=== PATIENT | female | born 1990 | race African-American/Black ===

== ENCOUNTER 2017-01-05 06:31 | Emergency (ER) | payer SELFPAY ==
[2017-01-05 06:42] VITALS: BP 113/72
--- NOTE | 2017-01-05 07:13 | EDM.PDOC ---
ED HPI GENERAL MEDICAL PROBLEM - General Chief Complaint: Chest Pain Stated Complaint: PAIN AFTER BREAST REDUCTION Time Seen by Provider: 01/05/17 06:55 Source of Information: Reports: Patient History Limitations: Reports: No Limitations - History of Present Illness INITIAL COMMENTS - FREE TEXT/NARRATIVE: The patient presents with bilateral breast pain post breast reduction surgery 1 1/2 weeks ago. She has no drainage or redness to the breast. The right hurts worse then the left. She has no shortness of breath, fever, chills or cough. She is on percocet for the pain but she does not like how they make her fell. She feels flush and lightheaded. She was wondering if she could get something not as strong. Onset: Gradual Duration: Week(s): (05/18) Location: Reports: Other (Breast) Quality: Reports: Ache Severity: Moderate Improves with: Reports: None Worsens with: Reports: None Context: Reports: Other (Post breast reduction surgery) Associated Symptoms: Reports: No Other Symptoms Right Breast Pain Score (Numeric/FACES): 8 - Related Data Allergies Allergy/AdvReac Type Severity Reaction Status Date / Time No Known Allergies Allergy Verified 01/05/17 06:43 Home Meds: Home Meds Hydrocodone/Acetaminophen [Hydrocodon-Acetaminophen 5-325] 1 - 2 each PO Q6HR PRN #20 tablet 01/05/17 [Rx] oxyCODONE HCl/Acetaminophen [Oxycodon-Acetaminophen 7.5-300] 01/05/17 [History] Past Medical History - Past Health History Medical/Surgical History: Denies Medical/Surgical History - Past Surgical History Female Surgical History: Reports: Breast Reduction Social & Family History - Family History Family Medical History: Noncontributory - Tobacco Use Smoking Status *Q: Unknown Ever Smoked - Recreational Drug Use Recreational Drug Use: No ED ROS GENERAL - Review of Systems Review Of Systems: See Below Constitutional: Reports: No Symptoms HEENT: Reports: No Symptoms Respiratory: Reports: No Symptoms Cardiovascular: Reports: Other (Bilateral breast pain) Endocrine: Reports: No Symptoms GI/Abdominal: Reports: No Symptoms : Reports: No Symptoms Musculoskeletal: Reports: No Symptoms ED EXAM, GENERAL - Physical Exam Exam: See Below Exam Limited By: No Limitations General Appearance: Alert, No Apparent Distress Ears: Normal External Exam Nose: Normal Inspection Head: Atraumatic, Normocephalic Neck: Normal Inspection Respiratory/Chest: No Respiratory Distress, Lungs Clear, Normal Breath Sounds, Other (The incissions to the lateral breasts were closed and there was no erythema or edema or drainage.) Cardiovascular: Regular Rate, Rhythm, No Edema, No Murmur GI/Abdominal: Soft, Non-Tender, No Organomegaly, No Mass Extremities: Normal Inspection Neurological: Alert, Oriented, No Motor/Sensory Deficits Course - Vital Signs Last Recorded V/S: Last Vital Signs Temp 96.8 F 01/05/17 06:39 Pulse 62 01/05/17 06:39 Resp 18 01/05/17 06:39 BP 113/72 01/05/17 06:39 Pulse Ox 100 01/05/17 06:39 - Re-Assessments/Exams Free Text/Narrative Re-Assessment/Exam: 01/05/17 07:13 I had my nurse come in for the breast exam. I only needed to see the incision on the lateral breast and it looks good. No sign of infection. I will have her try some hydrocodone. Departure - Departure Time of Disposition: 19:15 Disposition: Home, Self-Care 01 Condition: Good Clinical Impression: Status post breast reduction Prescriptions: Hydrocodone/Acetaminophen [Hydrocodon-Acetaminophen 5-325] 1 - 2 each PO Q6HR PRN #20 tablet PRN Reason: Pain Referrals: Veronica Guillermo PA [Physician Access Specialist] - 1 Week Forms: ED Department Discharge Additional Instructions: Try the hydrocodone for pain. If you have any more concerns follow up with Veronica Burroughs.
== END 2017-01-05 07:22 | disposition home or self-care (01) ==
LOC: JD.ED 06:31
DX: Z48.817 Encounter for surgical aftercare following surgery on the skin and subcutaneous tissue (principal)
CPT/HCPCS: 99283

== ENCOUNTER 2017-01-28 00:06 | Emergency (ER) | payer SELFPAY ==
[2017-01-28 00:12] VITALS: BP 137/82
--- NOTE | 2017-01-28 00:52 | EDM.PDOC ---
ED HPI GENERAL MEDICAL PROBLEM - General Chief Complaint: ENT Problem Stated Complaint: fever sore throat Time Seen by Provider: 01/28/17 00:11 Source of Information: Reports: Patient, RN Notes Reviewed History Limitations: Reports: No Limitations - History of Present Illness INITIAL COMMENTS - FREE TEXT/NARRATIVE: The patient states that she developed a sore throat yesterday morning, 2016. This morning she found that her throat was seen full to breathe, and she developed chills, bilateral ear pain, myalgias, and a dry cough. She has started taking TheraFlu, clicks, NyQuil, and hot water with lemon and honey, ever, none have helped. Here in the ED, the patient's temperature is 90.9 degrees. The patient does not have a PCP. Throat Pain Score (Numeric/FACES): 4 - Related Data Allergies Allergy/AdvReac Type Severity Reaction Status Date / Time No Known Allergies Allergy Verified 01/28/17 00:12 Home Meds: Home Meds . 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) ED ROS GENERAL - Review of Systems Review Of Systems: See Below Constitutional: Reports: No Symptoms HEENT: Reports: No Symptoms Respiratory: Reports: No Symptoms Cardiovascular: Reports: No Symptoms Endocrine: Reports: No Symptoms GI/Abdominal: Reports: No Symptoms : Reports: No Symptoms Musculoskeletal: Reports: No Symptoms Skin: Reports: No Symptoms Neurological: Reports: No Symptoms Psychiatric: Reports: No Symptoms Hematologic/Lymphatic: Reports: No Symptoms Immunologic: Reports: No Symptoms ED EXAM, GENERAL - Physical Exam Exam: See Below Exam Limited By: No Limitations General Appearance: Alert, WD/WN, No Apparent Distress Eye Exam: Bilateral Eye: Normal Inspection Ears: Normal External Exam, Normal Canal, Hearing Grossly Normal, Normal TMs Nose: Normal Inspection, No Blood, Other (Mild bilateral nasal mucosal edema with clear rhinorrhea) Throat/Mouth: Normal Inspection, Normal Lips, Normal Teeth, Normal Gums, Normal Oropharynx (Bilateral tonsils are large, but not erythematous, and without exudates. No posterior oropharyngeal swelling or erythema to suggest peritonsillar cellulitis or abscess.), Normal Voice, No Airway Compromise Head: Atraumatic, Normocephalic Neck: Normal Inspection, Supple, Non-Tender, Full Range of Motion. No: Lymphadenopathy (L), Lymphadenopathy (R) Respiratory/Chest: No Respiratory Distress, Lungs Clear, Normal Breath Sounds, No Accessory Muscle Use Cardiovascular: Normal Peripheral Pulses, Regular Rate, Rhythm, No Gallop, No JVD, No Murmur, No Rub Peripheral Pulses: 4+: Radial (L), Radial (R) GI/Abdominal: Normal Bowel Sounds, Soft, Non-Tender, No Organomegaly, No Distention, No Abnormal Bruit, No Mass (Female) Exam: Deferred Rectal (Female) Exam: Deferred Back Exam: Normal Inspection, Full Range of Motion, NT Extremities: Normal Inspection, Normal Range of Motion, No Pedal Edema, Normal Capillary Refill Neurological: Alert, Oriented, Normal Cognition, No Motor/Sensory Deficits Psychiatric: Normal Affect Skin Exam: Warm, Dry, Intact, Normal Color, No Rash Lymphatic: No Adenopathy Course - Vital Signs Last Recorded V/S: Last Vital Signs Temp 37.2 C 01/28/17 00:10 Pulse 112 H 01/28/17 00:10 Resp 18 01/28/17 00:10 BP 137/82 01/28/17 00:10 Pulse Ox 100 01/28/17 00:10 - Orders/Labs/Meds Orders: Active Orders 24 hr Category Date Time Status CULTURE STREP A CONFIRMATION [] Stat Lab 01/28/17 00:33 Results STREP SCRN A RAPID W CULT CONF [] Stat Lab 01/28/17 00:33 Received - Re-Assessments/Exams Free Text/Narrative Re-Assessment/Exam: 01/28/17 01:00 Rapid strep test results discussed with the patient. The patient likely has a viral URI with cough. I recommended that she avoided taking any over-the- counter cough or cold remedies, as they have been shown to be ineffective. For nasal congestion and sinus pressure, I am recommending she use oxymetazoline nasal spray and nasal saline spray. Body aches she can take Tylenol or ibuprofen. Departure - Departure Time of Disposition: 01:00 Disposition: Home, Self-Care 01 Condition: Good Clinical Impression: Viral URI with cough - Discharge Information Referrals: PCP,None [Primary Care Provider] - Rachel Reyes [Physician] - Forms: ED Department Discharge Additional Instructions: You were seen in the emergency room for a sore throat, chills, ear pain, body aches, and cough. Workup in the ER included a rapid strep test, which returned as negative. You do not have strep throat. Your symptoms are MOST LIKELY due to a viral URI. Unfortunately, there are no medicines to treat a viral URI. It will have to run its course, which typically takes 10-12 days, with the worst of the symptoms in the first 5-7 days. We DO NOT recommend you take [id number] cough or cold medicines, such as TheraFlu, Vicks, or NyQuil, as they simply don't work. For nasal congestion and sinus pressure, you can try fzgy-qjx-wzkxcyo oxymetazoline in a pump mist. [place] one spray up each nostril, wait 5 minutes, then spray a second spray up each nostril. Repeat every 12 hours, but DO NOT exceed 5 days. We also recommend using nasal saline spray, provided it does not have a preservative. Purchase hwom-bgk-vtxjfef Simple Saline in a pressurized can, and use this many times per day. For body aches, you can take kfdi-zyb-bieyxpt Tylenol or ibuprofen. Ibuprofen will probably work better and last longer, but may cause stomach upset. If your symptoms fail to improve in about a week, please follow-up with Dr. Reyes in the clinic. If any other problems, please do not hesitate to return to the ER. - My Orders Last 24 Hours: My Active Orders 01/28/17 00:33 CULTURE STREP A CONFIRMATION [RM] Stat STREP SCRN A RAPID W CULT CONF [RM] Stat - Assessment/Plan Last 24 Hours: My Active Orders 01/28/17 00:33 CULTURE STREP A CONFIRMATION [RM] Stat STREP SCRN A RAPID W CULT CONF [RM] Stat
== END 2017-01-28 01:30 | disposition home or self-care (01) ==
LOC: JD.ED 00:06
DX: J06.9 Acute upper respiratory infection, unspecified (principal); F17.200 Nicotine dependence, unspecified, uncomplicated
CPT/HCPCS: 87081; 87430; 99283

== ENCOUNTER 2017-07-13 08:56 | Emergency (ER) | payer SELFPAY ==
[2017-07-13 09:18] VITALS: BP 121/90
--- NOTE | 2017-07-13 10:36 | EDM.PDOC ---
ED HPI GENERAL MEDICAL PROBLEM - General Chief Complaint: Respiratory Problem Stated Complaint: FEVER/CHILLS Time Seen by Provider: 07/13/17 09:17 Source of Information: Reports: Patient History Limitations: Reports: No Limitations - History of Present Illness INITIAL COMMENTS - FREE TEXT/NARRATIVE: The patient presents with fever, chills, cough and sore throat. This started yesterday. 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 She has no chest pain, shortness of breath, abdominal pain, nausea or vomiting. She has body aches. Onset: Gradual Duration: Day(s): (Yesterday) Location: Reports: Other (Throat) Quality: Reports: Sharp Severity: Moderate Improves with: Reports: None Worsens with: Reports: Other (Swallowing) Associated Symptoms: Reports: No Other Symptoms Generalized Pain Score (Numeric/FACES): 6 - Related Data Allergies Allergy/AdvReac Type Severity Reaction Status Date / Time No Known Allergies Allergy Verified 07/13/17 09:18 Home Meds: Home Meds Oseltamivir [Tamiflu] 75 mg PO BID #10 cap 07/13/17 [Rx] Past Medical History - Past Health History Medical/Surgical History: Denies Medical/Surgical History - Past Surgical History Female Surgical History: Reports: Breast Reduction Social & Family History - Family History Family Medical History: Noncontributory - Tobacco Use Smoking Status *Q: Never Smoker - Caffeine Use Caffeine Use: Reports: Coffee - Recreational Drug Use Recreational Drug Use: No - Living Situation & Occupation Living situation: Reports: , with Spouse 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 Denies: Shortness of Breath Cardiovascular: Reports: No Symptoms Endocrine: Reports: No Symptoms GI/Abdominal: Reports: No Symptoms : Reports: No Symptoms Musculoskeletal: Reports: Muscle Pain, Other ED EXAM, GENERAL - Physical Exam Exam: See Below Exam Limited By: No Limitations General Appearance: Alert, No Apparent Distress Ears: Normal External Exam, Normal Canal, Normal TMs Nose: Normal Inspection Throat/Mouth: Other (Tonsilar edema and erythema) Head: Atraumatic, Normocephalic Neck: Normal Inspection Respiratory/Chest: No Respiratory Distress, Lungs Clear, Normal Breath Sounds Cardiovascular: Regular Rate, Rhythm, No Edema, No Murmur GI/Abdominal: Soft, Non-Tender, No Organomegaly, No Mass Back Exam: Normal Inspection Extremities: Normal Inspection Course - Vital Signs Last Recorded V/S: Last Vital Signs Temp 97.6 F 07/13/17 09:15 Pulse 112 H 07/13/17 09:15 Resp 18 07/13/17 09:15 BP 121/90 07/13/17 09:15 Pulse Ox 97 07/13/17 09:15 - Orders/Labs/Meds Orders: Active Orders 24 hr Category Date Time Status CULTURE STREP A CONFIRMATION [RM] Stat Lab 07/13/17 09:45 Results Rapid Strep w/culture conf [STREP SCRN A RAPID W CULT Lab 07/13/17 09:45 Results CONF] [] Stat - Re-Assessments/Exams Free Text/Narrative Re-Assessment/Exam: 07/13/17 10:34 Her strep is negative. She is positive for influenza B. I will discharge her with some tamiflu. Departure - Departure Time of Disposition: 10:35 Disposition: Home, Self-Care 01 Condition: Good Clinical Impression: Influenza B - Discharge Information Prescriptions: Oseltamivir [Tamiflu] 75 mg PO BID #10 cap Referrals: PCP,None [Primary Care Provider] - Delphine Caicedo MD [Physician] - 1 Week Forms: ED Department Discharge, ED Return to Work/School Form Additional Instructions: Take the tamiflu 2 times per day for 5 days. Drink plenty of fluids. Take tylenol or motrin for pain or fever. Please return if you are worse.
== END 2017-07-13 10:43 | disposition home or self-care (01) ==
LOC: JD.ED 08:56
DX: J10.1 Influenza due to other identified influenza virus with other respiratory manifestations (principal)
CPT/HCPCS: 87081; 87430; 87804; 99283

== ENCOUNTER 2018-08-15 21:04 | Emergency (ER) | payer MEDICAID ==
[2018-08-15 21:15] VITALS: BP 133/80
[2018-08-15] MEDS ORDERED: Ketorolac 30 MG/ML SDV IVPUSH ONE (21:25)
[2018-08-15] MEDS ORDERED: diphenhydrAMINE 50 MG/ML SDV IVPUSH ONE (21:25)
[2018-08-15] MEDS ORDERED: Prochlorperazine 10 MG/2 ML SDV IVPUSH ONE (21:25)
[2018-08-15] MEDS ORDERED: Sodium Chloride 0.9% 10 ML Syringe FLUSH PRN (21:25)
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
--- NOTE | 2018-08-16 07:17 | CT ---
Head CT Technique: Multiple axial sections were obtained from above the dome of the diaphragm inferiorly through the pubic symphysis. Intravenous contrast not utilized. Findings: Ventricles along with basal cisterns and sulci over the convexities are within normal limits for the patient's age. No abnormal parenchymal densities are seen. No evidence of intracranial hemorrhage. No midline shift or mass effect is seen. Bone window settings were reviewed which show no acute calvarial abnormality. Visualized sinuses are clear. Impression: 1. Nothing acute is appreciated on noncontrast head CT exam. Diagnostic code #1 I agree with preliminary report from [facility], finalized on 08/15/18, 11:25 PM Central Time
== END 2018-08-15 23:17 | disposition home or self-care (01) ==
LOC: JD.ED 21:04
DX: S06.9X9A Unspecified intracranial injury with loss of consciousness of unspecified duration, initial encounter (principal); H53.8 Other visual disturbances; W22.8XXA Striking against or struck by other objects, initial encounter
CPT/HCPCS: 70450; 87081; 87430; 87804; 96374; 96375; 99284; J0780; J1200; J1885

== ENCOUNTER 2018-08-24 17:54 | Emergency (ER) | payer MEDICAID ==
--- NOTE | 2018-08-24 18:29 | EDM.PDOC ---
ED HPI GENERAL MEDICAL PROBLEM - General Chief Complaint: JUICE WEIGHER Problem Stated Complaint: VAGINAL COMPLAINT Time Seen by Provider: 08/24/18 18:28 Source of Information: Reports: Patient - History of Present Illness INITIAL COMMENTS - FREE TEXT/NARRATIVE: Patient presents to the emergency room for dysuria. She states that she has had some labial irritation for the past 2 weeks. She is now having burning with urination that has worsened over the last 2 days. Burning is primarily located on the left side of her labia that she feels it is on her urethra as well. Incidentally, she did have unprotected intercourse about 3 weeks ago as well. She just got done with her LMP. Denies history of STI or vaginal lesions. Denies abdominal pain. Denies hematuria or abnormal color smell to urine. Denies GI symptoms. Denies fever or chills. . Perineal Area Pain Score (Numeric/FACES): 8 - Related Data Allergies Allergy/AdvReac Type Severity Reaction Status Date / Time No Known Allergies Allergy Verified 08/24/18 18:11 Home Meds: Home Meds . [No Known Home Meds] 08/15/18 [History] Past Medical History - Past Health History Medical/Surgical History: Denies Medical/Surgical History HEENT History: Reports: Impaired Vision JUICE WEIGHER History: Reports: - Infectious Disease History Infectious Disease History: Reports: Influenza - Past Surgical History Female Surgical History: Reports: Breast Reduction Social & Family History - Family History Family Medical History: Noncontributory - Tobacco Use Smoking Status *Q: Never Smoker Second Hand Smoke Exposure: No - Caffeine Use Caffeine Use: Reports: None - Recreational Drug Use Recreational Drug Use: No - Living Situation & Occupation Living situation: Reports: , with Spouse 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 Denies: Discharge, Flank Pain, Frequency, Hematuria , Urgency, Urinary Retention Skin: Reports: No Symptoms Neurological: Reports: No Symptoms ED EXAM, RENAL/ - Physical Exam Exam: See Below General Appearance: Alert, WD/WN, No Apparent Distress GI/Abdominal: Soft, Non-Tender (Female) Exam: Normal Speculum Exam, Other (0.5 cm area of irritation to the inside of the left labia. No pustule or vesicle noted. No ulceration noted.). No: Cervical Discharge, Cervix Motion Tenderness, Vaginal Bleeding, Vaginal Discharge Neurological: Alert, Oriented Psychiatric: Normal Affect, Normal Mood Skin Exam: Warm, Dry. No: Rash Course - Vital Signs Last Recorded V/S: Last Vital Signs Temp 98.1 F 08/24/18 18:02 Pulse 64 08/24/18 18:02 Resp 12 08/24/18 18:02 BP 94/81 08/24/18 18:02 Pulse Ox 100 08/24/18 18:02 - Orders/Labs/Meds Orders: Active Orders 24 hr Category Date Time Status GC/CHLAMYDIA BY PCR [MOLEC] Stat Lab 08/24/18 18:40 Received HERPES/VARICELLA [MREF] Routine Lab 08/24/18 18:40 Received Labs: Laboratory Tests 08/24/18 Range/Units 18:40 Urine Color Yellow (Yellow) Urine Appearance Clear (Clear) Urine pH 6.0 (5.0-8.0) Ur Specific Berry > or = 1.030 (1.005-1.030) Urine Protein Trace H (Negative) Urine Glucose (UA) Negative (Negative) Urine Ketones Negative (Negative) Urine Occult Blood Trace-intact H (Negative) Urine Nitrite Negative (Negative) Urine Bilirubin Negative (Negative) Urine Urobilinogen 1.0 (0.2-1.0) Ur Leukocyte Esterase Negative (Negative) Urine RBC 0-5 (0-5) /hpf Urine WBC 0-5 (0-5) /hpf Ur Epithelial Cells Not Reportable Ur Squamous Epith Cells 0-5 (0-5) /hpf Urine Bacteria Few (FEW) /hpf Urine Mucus Moderate H (FEW) /hpf - Re-Assessments/Exams Free Text/Narrative Re-Assessment/Exam: Urinalysis is concentrated with trace of protein and hematuria. She did just finish her menses yesterday. No infection. Wet mount negative. GC/chlamydia and herpes are pending but there is no vesicle or pustule noted on exam. I will notify her when these results become available. Suspect area is just more irritation, possibly due to friction. Recommend she apply topical calmoseptine and avoid irritating the area further. Patient will follow up in the clinic.Return to the emergency room for any new or worsening symptoms. 08/24/18 19:50 Departure - Departure Time of Disposition: 19:46 Disposition: Home, Self-Care 01 Condition: Good Clinical Impression: Dysuria, Vaginal irritation, Labia irritation - Discharge Information Referrals: PCP,None [Primary Care Provider] - Forms: ED Department Discharge Additional Instructions: You were evaluated in the emergency department for painful urination. Urinalysis demonstrated you did not have a bladder infection. You do have an irritation on the inside of her la Keep this area clean and dry. You may apply topical Calmoseptine cream (this can be purchased at any pharmacy ) to the irritated area. I will notify you of herpes and GC/chlamydia screening in a week or so when results are available. Return to the emergency department for any new or worsening symptoms otherwise follow-up in family practice clinic. You need to establish with a primary care provider. You can do this in the clinic by calling [phone]. - My Orders Last 24 Hours: My Active Orders 08/24/18 18:40 GC/CHLAMYDIA BY PCR [MOLEC] Stat HERPES/VARICELLA [MREF] Routine - Assessment/Plan Last 24 Hours: My Active Orders 08/24/18 18:40 GC/CHLAMYDIA BY PCR [MOLEC] Stat HERPES/VARICELLA [MREF] Routine
[2018-08-24 19:17] VITALS: BP 94/81
[2018-08-24 21:15] LABS: C. TRACHOMATIS BY PCR NOT DETECTED; N. GONORRHOEAE BY PCR NOT DETECTED
== END 2018-08-24 20:01 | disposition home or self-care (01) ==
LOC: JD.ED 17:54
DX: N89.8 Other specified noninflammatory disorders of vagina (principal); R30.0 Dysuria; R31.9 Hematuria, unspecified
CPT/HCPCS: 81001; 87210; 87491; 87591; 87801; 87808; 99282; 99283

== ENCOUNTER 2018-10-15 23:01 | Emergency (ER) | payer MEDICAID ==
[2018-10-15 23:27] VITALS: BP 126/78
[2018-10-16] MEDS ORDERED: Bacitracin Oint 15 GM Tube TOP STA (00:42)
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
== END 2018-10-16 00:55 | disposition home or self-care (01) ==
LOC: JD.ED 23:01
DX: S61.305A Unspecified open wound of left ring finger with damage to nail, initial encounter (principal); S61.307A Unspecified open wound of left little finger with damage to nail, initial encounter; S61.304A Unspecified open wound of right ring finger with damage to nail, initial encounter; H11.31 Conjunctival hemorrhage, right eye; F17.200 Nicotine dependence, unspecified, uncomplicated; Y04.0XXA Assault by unarmed brawl or fight, initial encounter
CPT/HCPCS: 99283; A9270

== ENCOUNTER 2019-01-09 09:33 | Emergency (ER) | payer MEDICAID ==
[2019-01-09 09:49] VITALS: BP 115/72
[2019-01-09] MEDS ORDERED: Albuterol 6.7 GM Inhaler INH ONE (10:22)
--- NOTE | 2019-01-09 10:26 | CR ---
Chest: Two views of the chest were obtained. Comparison: No prior chest imaging is available. Heart size and mediastinum are normal. Lungs are clear with no acute parenchymal change. Scoliosis is noted within the spine. Impression: 1. Scoliosis. Nothing acute is seen on two-view chest x-ray. Diagnostic code #2
--- NOTE | 2019-01-09 10:32 | EDM.PDOC ---
ED HPI GENERAL MEDICAL PROBLEM - General Chief Complaint: Respiratory Problem Stated Complaint: COUGH X 2 WEEKS Time Seen by Provider: 01/09/19 09:50 - History of Present Illness INITIAL COMMENTS - FREE TEXT/NARRATIVE: 28-year-old female presents emergency room with a cough. This cough has been present for the last 2 weeks it is mostly dry occasionally productive. She's not had any fevers or chills associated with this. She has no underlying lung disease however does have a history of enlarged tonsils. 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: - Infectious Disease History Infectious Disease History: Reports: Influenza - Past Surgical History Female Surgical History: Reports: Breast Reduction Social & Family History - Family History Family Medical History: Noncontributory - Caffeine Use Caffeine Use: Reports: None - Living Situation & Occupation Living situation: Reports: , Alone 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) ED ROS GENERAL - Review of Systems Review Of Systems: See Below Constitutional: Reports: No Symptoms HEENT: Reports: No Symptoms Respiratory: Reports: Cough, Sputum (Occasional) Cardiovascular: Reports: No Symptoms GI/Abdominal: Reports: No Symptoms ED EXAM, GENERAL - Physical Exam Exam: See Below Exam Limited By: No Limitations General Appearance: Alert, No Apparent Distress Eye Exam: Bilateral Eye: Normal Inspection Ears: Normal External Exam, Normal Canal, Hearing Grossly Normal, Normal TMs Nose: Normal Inspection, Normal Mucosa, No Blood Throat/Mouth: Normal Inspection, Normal Lips, Normal Teeth, Normal Gums, No Airway Compromise, Other (Normal color oropharynx tonsils are markedly enlarged this appears to be chronic condition for her). No: Normal Oropharynx Head: Atraumatic, Normocephalic Neck: Normal Inspection, Supple, Non-Tender, Full Range of Motion. No: Lymphadenopathy (L), Lymphadenopathy (R) Respiratory/Chest: No Respiratory Distress, Lungs Clear, Normal Breath Sounds Cardiovascular: Regular Rate, Rhythm, No Edema, No Murmur Course - Vital Signs Last Recorded V/S: Last Vital Signs Temp 36.6 C 01/09/19 09:40 Pulse 84 01/09/19 09:40 Resp 16 01/09/19 09:40 BP 115/72 01/09/19 09:40 Pulse Ox 99 01/09/19 09:40 - Orders/Labs/Meds Orders: Active Orders 24 hr Category Date Time Status RT Post Treatment Assessment [RC] Click to Edit Care 01/09/19 10:22 Active RT Pre-Treatment Assessment [RC] Click to Edit Care 01/09/19 10:22 Active Meds: Medications Discontinued Medications Generic Name Dose Route Start Last Admin Trade Name Freq PRN Reason Stop Dose Admin Albuterol 0 gm 01/09/19 10:22 Proventil Hfa INH 01/09/19 10:23 ONETIME ONE - Re-Assessments/Exams Free Text/Narrative Re-Assessment/Exam: 01/09/19 10:29 Patient is a continued cough for the last 2 weeks mostly dry nonproductive but occasionally bringing up small amount of mucus. Chest x-ray was done which reveals some scoliosis but no acute cardiopulmonary changes. Departure - Departure Time of Disposition: 10:29 Disposition: Home, Self-Care 01 Clinical Impression: Bronchitis - Discharge Information Prescriptions: Hydrocodone/Acetaminophen [[place] 5-325 Tablet] 1 each PO Q24H PRN #5 tablet PRN Reason: Cough Referrals: PCP,None [Primary Care Provider] - Forms: ED Department Discharge Additional Instructions: Return to the emergency room with any questions problems worsening symptoms. Use the inhaler your given in the emergency room 2 puffs every 4 hours while awake. Follow-up at the end of this week Hospital clinic to establish care and follow- up on her bronchitis. [phone]. Use the [place], or the hydrocodone one nightly as needed to help with your cough - My Orders Last 24 Hours: My Active Orders 01/09/19 10:22 RT Post Treatment Assessment [RC] Click to Edit RT Pre-Treatment Assessment [RC] Click to Edit - Assessment/Plan Last 24 Hours: My Active Orders 01/09/19 10:22 RT Post Treatment Assessment [RC] Click to Edit RT Pre-Treatment Assessment [RC] Click to Edit
== END 2019-01-09 10:55 | disposition home or self-care (01) ==
LOC: JD.ED 09:33
DX: J40 Bronchitis, not specified as acute or chronic (principal); Z88.1 Allergy status to other antibiotic agents
CPT/HCPCS: 71046; 94640; 99283; A9270

== ENCOUNTER 2019-07-10 16:25 | Emergency (ER) | payer MEDICAID ==
[2019-07-10 17:29] VITALS: BP 117/94; PULSE 84
[2019-07-10] MEDS ORDERED: Bupivacaine 0.5% 10 ML SDV INJECT ONE (18:57)
[2019-07-10] MEDS ORDERED: Lidocaine 1% 10 ML MDV INJECT ONE (18:57)
--- NOTE | 2019-07-10 18:57 | EDM.PDOC ---
ED HPI GENERAL MEDICAL PROBLEM - General Chief Complaint: Skin Complaint Stated Complaint: BOIL IN PRIVATE AREA Time Seen by Provider: 07/10/19 18:49 - History of Present Illness INITIAL COMMENTS - FREE TEXT/NARRATIVE: 28-year-old female presents the emergency room with abscess developing in her left groin. This is been developing over the last several days. The patient tried to drain it using nail clippers last night this did not work so it. She is not had any fevers or chills. She thinks this started after shaving the area. The patient has not had problems like this in the past. Patient has no other complaints at this time she has no complaints consistent with systemic illness. 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 NURSE 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: Reports: Musculoskeletal History: Reports: None Neurological History: Reports: None Psychiatric History: Reports: None Endocrine/Metabolic History: Reports: None Hematologic History: Reports: None Immunologic History: Reports: None Oncologic (Cancer) History: Reports: None Dermatologic History: Reports: None - Infectious Disease History Infectious Disease History: Reports: None - Past Surgical History Female Surgical History: Reports: Breast Reduction Social & Family History - Family History Family Medical History: Noncontributory - Tobacco Use Smoking Status *Q: Never Smoker - Caffeine Use Caffeine Use: Reports: Soda - Recreational Drug Use Recreational Drug Use: No - Living Situation & Occupation Living situation: Reports: , Alone 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) ED ROS GENERAL - Review of Systems Review Of Systems: See Below Constitutional: Reports: No Symptoms Respiratory: Reports: No Symptoms Cardiovascular: Reports: No Symptoms GI/Abdominal: Reports: No Symptoms : Reports: No Symptoms ED EXAM, SKIN/RASH Exam: See Below Exam Limited By: No Limitations General Appearance: Alert, No Apparent Distress Respiratory/Chest: No Respiratory Distress, Lungs Clear, Normal Breath Sounds Cardiovascular: Regular Rate, Rhythm, No Edema, No Murmur GI/Abdominal: Normal Bowel Sounds, Soft, Non-Tender (Female) Exam: Normal External Exam, Other (In her lateral inferior left groin she has no abscesses roughly 4 cm x 1-1/2 cm fairly superficial under the skin this is medial and inferior to the femoral triangle) ED SKIN PROCEDURES - I&D Site: Left inferior medial groin Skin Prep: Providone-Iodine (Betadine) Local Anesthesia: Lidocaine: 1% Plain Local Anesthesia - Bupivicaine (Marcaine): 0.5% Plain Local Anesthetic Volume: 5cc, Other (5 cc of each) Area Incised With: 15 Blade, Scissors Drainage: Purulent, Bloody, Large Amount Probed to Break Up Loculations: Yes Packed With: 1/2 in. Iodoform Sterile Dressing: Other (Bulky dressing using an ABD) Complications: No Progress/Comments: Patient tolerated the procedure well. Course - Vital Signs Last Recorded V/S: Last Vital Signs Temp 36.1 C 07/10/19 17:21 Pulse 84 07/10/19 17:21 Resp 16 07/10/19 17:21 BP 117/94 H 07/10/19 17:21 Pulse Ox 100 07/10/19 17:21 - Orders/Labs/Meds Meds: Medications Discontinued Medications Generic Name Dose Route Start Last Admin Trade Name Krystle PRN Reason Stop Dose Admin Bupivacaine HCl 10 ml 07/10/19 18:57 07/10/19 19:04 Sensorcaine-Mpf 0.5% INJECT 07/10/19 18:58 10 ml ONETIME ONE Administration Lidocaine HCl 10 ml 07/10/19 18:57 07/10/19 19:04 Xylocaine 1% INJECT 07/10/19 18:58 10 ml ONETIME ONE Administration - Re-Assessments/Exams Free Text/Narrative Re-Assessment/Exam: 07/10/19 19:57 Presents with an abscess in her left groin after informed consent without difficulty draining this refer to the procedure note Departure - Departure Time of Disposition: 19:57 Disposition: Home, Self-Care 01 Clinical Impression: Abscess of left groin - Discharge Information Prescriptions: Acetaminophen/HYDROcodone [[place] 325-5 MG] 1 - 2 tab PO Q6H PRN #25 tablet PRN Reason: Pain Clindamycin HCl 300 mg PO Q8H #21 capsule Referrals: PCP,None [Primary Care Provider] - Forms: ED Department Discharge Additional Instructions: Return to the emergency room with any questions problems or worsening symptoms. Follow-up in the hospital clinic on Wednesday for recheck call in the morning for an appointment [phone]. Take the antibiotics as directed. Use the pain pills as needed. For the next week do sitz baths using some Epsom salts 4 times daily. After 1 week decrease it to twice daily until it is completely healed. Prior to doing this probed the area with Q-tips and hydrogen peroxide as we discussed. It is very important to keep the incision open and let this heal from the inside out. Sepsis Event Note - Evaluation Sepsis Screening Result: No Definite Risk - Focused Exam Vital Signs: Vital Signs Temp Pulse Resp BP Pulse Ox 07/10/19 17:21 36.1 C 84 16 117/94 H 100 Date Exam was Performed: 07/10/19 Time Exam was Performed: 19:48
[2019-07-10] MEDS ORDERED: Clindamycin HCl 150 MG Cap PO ONE (19:55)
== END 2019-07-10 20:14 | disposition home or self-care (01) ==
LOC: JD.ED 16:25
DX: L02.214 Cutaneous abscess of groin (principal); Z88.1 Allergy status to other antibiotic agents
CPT/HCPCS: 10061; 87070; 99283; A9270; J2001; J3490; 10060

== ENCOUNTER 2019-11-16 21:14 | Emergency (ER) | payer MEDICAID, OTHER ==
[2019-11-16 21:29] VITALS: BP 126/81; PULSE 95
--- NOTE | 2019-11-16 22:18 | EDM.PDOC ---
ED HPI GENERAL MEDICAL PROBLEM - General Chief Complaint: Fever Stated Complaint: FEVER,COUGH AND TIGHTNESS IN CHEST Time Seen by Provider: 11/16/19 21:44 Source of Information: Reports: Patient History Limitations: Reports: No Limitations - History of Present Illness INITIAL COMMENTS - FREE TEXT/NARRATIVE: Ms. Fletcher is a very pleasant 29-year-old woman with no chronic medical problems, who states that she experienced some watery diarrhea on 11/12/2019, and none since. She then choked on a chip 3 days ago, 11/13/2019. She states that it caused her to cough the whole day. She then woke up 2 days ago, 11/14/2019, with a sore throat. She also developed a nonproductive cough which has persisted. She went to the walk-in clinic, where a rapid strep test was negative. She states that no prescriptions were given. She states that she then felt feverish yesterday, with diaphoresis and feeling faint. She states that she called 911 last night, that the paramedics evaluated her, and advised her to put a cool compress on her forehead and take Tylenol. The patient now presents the ED stating that she is concerned that she may have acquired COVID-19, and wants to be tested, because she is planning to go to [place] in 2 days, and wants to know before she goes. The patient acknowledges that she is not taking appropriate precautions to avoid infection with COVID-19. Here in the ED, the patient is found to be hemodynamically stable, afebrile, saturating 98% on room air. Other than the above symptoms, the patient denies recent fever, chills, ear pain, nasal or sinus congestion, dyspnea, chest pain, palpitations, nausea, vomiting, constipation, abdominal pain, urinary symptoms, recent weight gain or weight loss, recent bloody bowel movements or black bowel movements, recent joint aches, headaches, or rashes. The patient does not have a PCP. - Related Data Allergies Allergy/AdvReac Type Severity Reaction Status Date / Time amoxicillin Allergy Rash Verified 07/10/19 17:28 Home Meds: Home Meds Acetaminophen/HYDROcodone [[place] 325-5 MG] 1 - 2 tab PO Q6H PRN #25 tablet 07/10/19 [Rx] Clindamycin HCl 300 mg PO Q8H #21 capsule 07/10/19 [Rx] Past Medical History HEENT History: Reports: Impaired Vision - Past Surgical History Female Surgical History: Reports: Breast Reduction (bilateral) Social & Family History - Family History Family Medical History: Noncontributory - Tobacco Use Smoking Status *Q: Never Smoker Second Hand Smoke Exposure: No - Caffeine Use Caffeine Use: Reports: None - Alcohol Use Alcohol Use History: Yes Alcohol Use Frequency: Socially - Recreational Drug Use Recreational Drug Use: Yes Drug Use in Last 12 Months: Yes Recreational Drug Type: Reports: Marijuana/Hashish (smokes on occasion) - Living Situation & Occupation Living situation: Reports: , Alone 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 ED EXAM, GENERAL - Physical Exam Exam: See Below Exam Limited By: No Limitations General Appearance: Alert, WD/WN, No Apparent Distress Eye Exam: Bilateral Eye: EOMI, Normal Inspection Ears: Normal External Exam, Normal Canal, Hearing Grossly Normal, Normal TMs Nose: Normal Inspection, Normal Mucosa, No Blood Throat/Mouth: Normal Inspection, Normal Lips, Normal Teeth, Normal Gums, Normal Oropharynx (anatomically large tonsils, but no swelling, erythema, or exudates), Normal Voice, No Airway Compromise Head: Atraumatic, Normocephalic Neck: Normal Inspection, Supple, Non-Tender, Full Range of Motion. No: Lymphadenopathy (L), Lymphadenopathy (R) Respiratory/Chest: No Respiratory Distress, Lungs Clear, Normal Breath Sounds, No Accessory Muscle Use. No: Decreased Breath Sounds, Crackles, Rhonchi, Wheezing, Stridor, Prolonged Expiration Cardiovascular: Normal Peripheral Pulses, Regular Rate, Rhythm, No Edema, No Gallop, No JVD, No Murmur, No Rub Peripheral Pulses: 3+: Radial (L), Radial (R) GI/Abdominal: Normal Bowel Sounds, Soft, Non-Tender, No Organomegaly, No Distention, No Abnormal Bruit, No Mass (Female) Exam: Deferred Rectal (Female) Exam: Deferred Back Exam: Normal Inspection, Full Range of Motion, NT Extremities: Normal Inspection, Normal Range of Motion, No Pedal Edema, Normal Capillary Refill Neurological: Alert, Oriented, Normal Cognition, No Motor/Sensory Deficits Psychiatric: Normal Affect Skin Exam: Warm, Dry, Intact, Normal Color, No Rash Course - Vital Signs Last Recorded V/S: Last Vital Signs Temp 36.2 C 11/16/19 21:24 Pulse 95 11/16/19 21:24 Resp 16 11/16/19 21:24 BP 126/81 11/16/19 21:24 Pulse Ox 98 11/16/19 21:24 - Orders/Labs/Meds Orders: Active Orders 24 hr Category Date Time Status CORONAVIRUS COVID-19 PCR [facility] Stat Lab 11/16/19 22:25 Received - Re-Assessments/Exams Free Text/Narrative Re-Assessment/Exam: 11/16/19 22:11 As above, the patient has had a dry cough and felt feverish with sweatiness and feeling faint since Wednesday. On physical exam, no abnormalities were found. Her lungs are entirely clear to auscultation bilaterally without wheezing, and her oxygen saturation is 98% on room air. She declined an offer for testing such as blood work or a chest x-ray - she is here to be tested for COVID-19 only. I explained that we are not able to perform either the stat or rapid COVID-19 test, as they are reserved for emergency surgeries and inpatients, and that ordinarily the send-out test performed by the [facility] is to be obtained by the COVID clinic, however, I spoke with our charge nurse, and she does not object if we obtain the send-out test here tonight. The patient will therefore be swabbed, then discharged home. Departure - Departure Time of Disposition: 22:13 Disposition: Home, Self-Care 01 Condition: Good Clinical Impression: Cough - Discharge Information *PRESCRIPTION DRUG MONITORING PROGRAM REVIEWED*: Not Applicable *COPY OF PRESCRIPTION DRUG MONITORING REPORT IN PATIENT PK: Not Applicable Instructions: Cough, Adult, [id number] Referrals: PCP,None [Primary Care Provider] - Forms: ED Department Discharge Additional Instructions: You were seen in the emergency room for 2 days of a dry cough and feeling feverish with sweatiness and feeling faint. A work-up, including blood work and a chest x-ray was offered, but declined. You have been swabbed to test for COVID-19. The test is performed by the [facility]. You should get your results in about 2 days. If any other problems, please do not hesitate to return to the ER. Sepsis Event Note (ED) - Evaluation Sepsis Screening Result: No Definite Risk - Focused Exam Vital Signs: Vital Signs Temp Pulse Resp BP Pulse Ox 11/16/19 21:24 36.2 C 95 16 126/81 98 - My Orders Last 24 Hours: My Active Orders 11/16/19 22:25 CORONAVIRUS COVID-19 PCR [facility] Stat - Assessment/Plan Last 24 Hours: My Active Orders 11/16/19 22:25 CORONAVIRUS COVID-19 PCR [facility] Stat
== END 2019-11-16 22:33 | disposition home or self-care (01) ==
LOC: JD.ED 21:14
DX: R05 Cough (principal); Z88.1 Allergy status to other antibiotic agents; Z20.828 Contact with and (suspected) exposure to other viral communicable diseases
CPT/HCPCS: 99282; 99284; U0002

== ENCOUNTER 2020-02-06 17:39 | Emergency (ER) | payer SELFPAY ==
[2020-02-06 17:50] VITALS: BP 130/79; PULSE 78
--- NOTE | 2020-02-06 18:32 | EDM.PDOC ---
ED HPI GENERAL MEDICAL PROBLEM - General Chief Complaint: Respiratory Problem Stated Complaint: COUGH/EXPOSED TO SOMEONE WITH COVID Time Seen by Provider: 02/06/20 17:58 Source of Information: Reports: Patient History Limitations: Reports: No Limitations - History of Present Illness INITIAL COMMENTS - FREE TEXT/NARRATIVE: The patient presents with a cough and runny nose. She was exposed to COVID 19 by her room mate. Her room mate has it and moved into a hotel room. She has more symptoms. The patient has no other symptoms other then the runny nose, and cough. She has no fever, chills, chest pain, shortness of breath, abdominal pain, nausea and vomiting. She has no health problems such as asthma. She does not smoke. Onset: Gradual Duration: Day(s): Severity: Mild Improves with: Reports: None Worsens with: Reports: None Associated Symptoms: Reports: Cough. Denies: Chest Pain, Fever/Chills, Headaches, Nausea/Vomiting, Shortness of Breath - Related Data Allergies Allergy/AdvReac Type Severity Reaction Status Date / Time amoxicillin Allergy Severe Rash Verified 02/06/20 17:50 Home Meds: Home Meds . 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: Musculoskeletal History: Reports: None Neurological History: Reports: None Psychiatric History: Reports: None Endocrine/Metabolic History: Reports: None Hematologic History: Reports: None Immunologic History: Reports: None Oncologic (Cancer) History: Reports: None Dermatologic History: Reports: None - Infectious Disease History Infectious Disease History: Reports: None - Past Surgical History Female Surgical History: Reports: Breast Reduction Social & Family History - Family History Family Medical History: Noncontributory - Tobacco Use Smoking Status *Q: Never Smoker - Caffeine Use Caffeine Use: Reports: Energy Drinks - Alcohol Use Days Per Week of Alcohol Use: 2 Number of Drinks Per Day: 3 Total Drinks Per Week: 6 - Recreational Drug Use Recreational Drug Use: No - Living Situation & Occupation Living situation: Reports: , Alone 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 Denies: Shortness of Breath Cardiovascular: Reports: No Symptoms Endocrine: Reports: No Symptoms GI/Abdominal: Reports: Constipation Musculoskeletal: Reports: No Symptoms Skin: Reports: No Symptoms ED EXAM, GENERAL - Physical Exam Exam: See Below Exam Limited By: No Limitations General Appearance: Alert, No Apparent Distress Ears: Normal External Exam Nose: Normal Inspection Head: Atraumatic, Normocephalic Neck: Normal Inspection Respiratory/Chest: No Respiratory Distress, Lungs Clear, Normal Breath Sounds Cardiovascular: Regular Rate, Rhythm, No Edema, No Murmur GI/Abdominal: Soft, Non-Tender, No Organomegaly, No Mass Back Exam: Normal Inspection Extremities: Normal Inspection Course - Vital Signs Last Recorded V/S: Last Vital Signs Temp 97.0 F 02/06/20 17:47 Pulse 78 02/06/20 17:47 Resp 16 02/06/20 17:47 BP 130/79 02/06/20 17:47 Pulse Ox 99 02/06/20 17:47 - Orders/Labs/Meds Orders: Active Orders 24 hr Category Date Time Status CORONAVIRUS COVID-19 PCR [facility] Stat Lab 02/06/20 18:13 Ordered - Re-Assessments/Exams Free Text/Narrative Re-Assessment/Exam: 02/06/20 18:30 I ordered a COVID 19 test. I will discharge her home. Departure - Departure Time of Disposition: 18:35 Disposition: Home, Self-Care 01 Condition: Good Clinical Impression: Viral URI with cough - Discharge Information *PRESCRIPTION DRUG MONITORING PROGRAM REVIEWED*: Not Applicable *COPY OF PRESCRIPTION DRUG MONITORING REPORT IN PATIENT PK: Not Applicable Referrals: PCP,None [Primary Care Provider] - Ani Wilkerson NP [Nurse Practitioner] - 1 Week Additional Instructions: Isolate yourself until we know the results. Please return if you are worse. Sepsis Event Note (ED) - Evaluation Sepsis Screening Result: No Definite Risk - Focused Exam Vital Signs: Vital Signs Temp Pulse Resp BP Pulse Ox 02/06/20 17:47 97.0 F 78 16 130/79 99 - My Orders Last 24 Hours: My Active Orders 02/06/20 18:13 CORONAVIRUS COVID-19 PCR PHL Stat - Assessment/Plan Last 24 Hours: My Active Orders 02/06/20 18:13 CORONAVIRUS COVID-19 PCR PHL Stat
== END 2020-02-06 18:52 | disposition home or self-care (01) ==
LOC: JD.ED 17:39
DX: J06.9 Acute upper respiratory infection, unspecified (principal); Z20.828 Contact with and (suspected) exposure to other viral communicable diseases; Z88.1 Allergy status to other antibiotic agents
CPT/HCPCS: 99282; 99283; U0002

== ENCOUNTER 2020-09-03 17:11 | Emergency (ER) | payer MEDICAID ==
[2020-09-03 17:21] VITALS: BP 129/81; PULSE 100
--- NOTE | 2020-09-03 17:30 | EDM.PDOC ---
ED HPI GENERAL MEDICAL PROBLEM - General Chief Complaint: ENT Problem Stated Complaint: sore throat Time Seen by Provider: 09/03/20 17:22 Source of Information: Reports: Patient History Limitations: Reports: No Limitations - History of Present Illness INITIAL COMMENTS - FREE TEXT/NARRATIVE: 30-year-old female presents to the ED with sore throat and very plugged up nose. Sore throat started this morning nasal congestion and sinus infection started over 2 weeks ago. Patient has issues with chronic sinus infection and recurrent tonsillitis. She has a very minimal cough at this time. No serious signs or symptoms that would suggest COVID-19 illness. Onset: Today (Sore throat started today.), Other (And his congestion for greater than 2 weeks with postnasal drip) Duration: Hour(s):, Getting Worse Location: Reports: Face (Marked nasal congestion with pain in both maxillary sinuses) Quality: Reports: Ache ( and mid face.), Burning, Throbbing Severity: Moderate (Throat.) Improves with: Reports: None, Other (She has tried numerous [id number] medications without relief of nasal congestion.) Worsens with: Reports: Eating Context: Denies: Activity, Exercise (Eating and swallowing makes the throat worse.), Lifting, Sick Contact, Trauma, Other Associated Symptoms: Reports: No Other Symptoms, Cough (Minimal cough), cough w sputum ( felt to be primarily secondary to postnasal drip.), Malaise. 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: Reports: Acetaminophen, NSAIDS Throat Pain Score (Numeric/FACES): 8 - Related Data Allergies Allergy/AdvReac Type Severity Reaction Status Date / Time amoxicillin Allergy Severe Rash Verified 09/03/20 17:21 Home Meds: Home Meds Doxycycline [Vibra-Tabs] 100 mg PO Q12HR #28 tab 09/03/20 [Rx] Loratadine/Pseudoephedrine [Claritin-D 24 Hour Tablet] 1 each PO DAILY #5 tab.er.24h 09/03/20 [Rx] Past Medical History - Past Health History Medical/Surgical History: Denies Medical/Surgical History HEENT History: Reports: Impaired Vision Cardiovascular History: Reports: None Respiratory History: Reports: None Gastrointestinal History: Reports: None 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: Musculoskeletal History: Reports: None Neurological History: Reports: None Psychiatric History: Reports: None Endocrine/Metabolic History: Reports: None Hematologic History: Reports: None Immunologic History: Reports: None Oncologic (Cancer) History: Reports: None Dermatologic History: Reports: None - Infectious Disease History Infectious Disease History: Reports: None - Past Surgical History Female Surgical History: Reports: Breast Reduction Social & Family History - Family History Family Medical History: No Pertinent Family History - Caffeine Use Caffeine Use: Reports: Energy Drinks - Living Situation & Occupation Living situation: Reports: , Alone 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 Denies: Chills, Malaise HEENT: Reports: Ear Discharge (Muffled hearing left ear.), Hearing Loss, Rhinitis (Recurrent sinus problems due to), Sinus Problem, Throat Pain, Throat Swelling. Denies: Dental Pain ( Discharge from left ear today.) Respiratory: Reports: Cough ( chronic allergic rhinitis.). Denies: Shortness of Breath (Mild cough rarely produces any sputum. Suspect postnasal drip. ), Wheezing, Pleuritic Chest Pain Cardiovascular: Reports: No Symptoms, Chest Pain, Blood Pressure Problem, Claudication, Dyspnea on Exertion Endocrine: Reports: No Symptoms GI/Abdominal: Reports: No Symptoms : Reports: No Symptoms Musculoskeletal: Reports: No Symptoms Skin: Reports: No Symptoms Neurological: Reports: No Symptoms Psychiatric: Reports: No Symptoms Hematologic/Lymphatic: Reports: No Symptoms Immunologic: Reports: No Symptoms ED EXAM, ENT - Physical Exam Exam: See Below Exam Limited By: No Limitations General Appearance: Alert, WD/WN, Mild Distress, Other (Patient sounds extremely nasally congested. Temperature is 36.4 degrees with heart rate of 100 and sinus. Respiratory is 14 with O2 sats of 99% room air. BP 129/81.) Eye Exam: Bilateral Eye: Normal Inspection, PERRL (No scleral icterus or blepharal pallor.) Ears: TM Obscured by Cerumen (TM is partially obscured by cerumen in the left ear. It is of the very waxy oily texture. The right tympanic membrane is normal visualized portions of the left tympanic membrane are normal as well.) Nose: Clear Rhinorrhea (She has extreme swelling of both the superior and middle turbinates with occlusion of the nares bilaterally worse on the right side as compared to the left.), Nasal Swelling Mouth/Throat: Normal Inspection, Normal Gums, Normal Lips, Normal Teeth, Pharyngeal Erythema, Throat Pain, Tonsillar Erythema, Tonsillar Swelling (Patient has marked tonsillar hypertrophy for her age. They are nearly touching in the midline.). No: Peritonsillar Mass Head: Atraumatic, Normocephalic Neck: Normal Inspection, Supple, Non-Tender, Full Range of Motion, Lymphadenopathy (L), Lymphadenopathy (R) (Mild left submandibular adenopathy) Respiratory/Chest: No Respiratory Distress, Lungs Clear, Normal Breath Sounds, No Accessory Muscle Use ( mild right submandibular adenopathy.) Cardiovascular: Normal Peripheral Pulses, Regular Rate, Rhythm, No Edema, No Gallop, No Murmur, No Rub Extremities: Normal Inspection, Normal Range of Motion, Non-Tender, No Pedal Edema Neurological: Alert, Oriented, CN II-XII Intact, Normal Cognition, Normal Gait Course - Vital Signs Last Recorded V/S: Last Vital Signs Temp 36.4 C 09/03/20 17:17 Pulse 100 09/03/20 17:17 Resp 14 09/03/20 17:17 BP 129/81 09/03/20 17:17 Pulse Ox 99 09/03/20 17:17 Departure - Departure Time of Disposition: 17:30 Disposition: Home, Self-Care 01 Condition: Fair Clinical Impression: Chronic tonsillar hypertrophy Sinusitis Qualifiers: Sinusitis location: unspecified location Chronicity: acute Recurrence: recurrent Qualified Code(s): J01.91 - Acute recurrent sinusitis, unspecified Pharyngitis Qualifiers: Pharyngitis/tonsillitis etiology: unspecified etiology Qualified Code(s): J02.9 - Acute pharyngitis, unspecified - Discharge Information *PRESCRIPTION DRUG MONITORING PROGRAM REVIEWED*: Not Applicable *COPY OF PRESCRIPTION DRUG MONITORING REPORT IN PATIENT PK: Not Applicable Prescriptions: Loratadine/Pseudoephedrine [Claritin-D 24 Hour Tablet] 1 each PO DAILY #5 tab.er.24h Doxycycline [Vibra-Tabs] 100 mg PO Q12HR #28 tab Referrals: PCP,None [Primary Care Provider] - Additional Instructions: Evaluation in the emergency room today in regards to upper respiratory tract infection mostly involving the sinuses due to severe allergic rhinitis causing complete occlusion of both nares. Right side is slightly worse than the left. Both ear drums appear normal. There is excessive amount of sticky wax within the left ear which I think is causing you to feel drainage. Water sometimes will be trapped in behind the wax and drain out of the ear over a day after having a shower. Suggest 2 to 3 drops of a cooking oil all of oil works the best into the left ear every night at bedtime for the next 3 nights and the ear should be able to be lavaged under the shower water. Exam of the throat reveals markedly hypertrophic tonsils which means they are markedly enlarged. Throat is moderately red and infected as well. Treatment is to be doxycycline 100 mg twice daily for the next 2 weeks to clear up sinus infection. Suggest Claritin- D 24-hour release tablet 1 every morning for the next 5 days. You may use Afrin nasal spray 1 squirt each side of the nose and repeat 1 minute later which will open up your nose so that you can breathe overnight. It should only be used at nighttime and only for 5 days. Suggest follow-up with ear nose and throat surgeon such as Dr. Son in [place]. His clinic phone number is [phone]. I will give you a copy of today's history and physical examination if you need a referral you could fax this to their office if needed. Sepsis Event Note (ED) - Evaluation Sepsis Screening Result: No Definite Risk - Focused Exam Vital Signs: Vital Signs Temp Pulse Resp BP Pulse Ox 09/03/20 17:17 36.4 C 100 14 129/81 99
== END 2020-09-03 17:57 | disposition home or self-care (01) ==
LOC: JD.ED 17:11
DX: J01.91 Acute recurrent sinusitis, unspecified (principal); J02.9 Acute pharyngitis, unspecified; J35.1 Hypertrophy of tonsils; Z88.0 Allergy status to penicillin
CPT/HCPCS: 99283; 99284

== ENCOUNTER 2020-10-09 11:21 | Emergency (ER) | payer SELFPAY ==
[2020-10-09 11:36] VITALS: BP 114/64; PULSE 62
--- NOTE | 2020-10-09 12:06 | EDM.PDOC ---
ED HPI GENERAL MEDICAL PROBLEM - General Chief Complaint: Abdominal Pain Stated Complaint: ABD PAIN/8 WEEKS PG Time Seen by Provider: 10/09/20 11:31 Source of Information: Reports: Patient, RN Notes Reviewed History Limitations: Reports: No Limitations - History of Present Illness INITIAL COMMENTS - FREE TEXT/NARRATIVE: Patient is a 30-year-old female who presents to the ER for the evaluation of her abdomen cramping in . She notes she is a G1, P0, and is to see Dr. Araya on November 11, 2020 for her initial OB appointment. Patient believes she is roughly 6 weeks . Patient states that she has been having cramping off and on in her abdomen, as well as some intermittent constipation issues for the past few days. She notes that she did have a bowel movement this morning, but has not been fairly regular, so she is not sure if it something with the or if it is bowel related. Notes that she has been eating quite a bit more cheese that she normally does, so again she was thinking is more bowel related. She is not having any vaginal bleeding, any dysuria, frequency or urgency. She further denies any fevers or chills, cough/shortness of breath, nausea/vomiting/diarrhea. Patient notes that she is been in fairly good health otherwise. Lower Abdomen Pain Score (Numeric/FACES): 8 - Related Data Allergies Allergy/AdvReac Type Severity Reaction Status Date / Time amoxicillin Allergy Intermediate Rash Verified 10/09/20 11:31 Home Meds: Home Meds Mv-Mn/Iron/FA/Herbal/Digestive [ One Tablet] 1 tab PO DAILY 10/09/20 [History] Past Medical History HEENT History: Reports: Impaired Vision ENGINE DESIGNER History: Reports: : 1 Para: 0 LMP (Approximate): Endocrine/Metabolic History: Reports: Obesity/BMI 30+ - Past Surgical History Female Surgical History: Reports: Breast Reduction Social & Family History - Family History Family Medical History: No Pertinent Family History - Tobacco Use Tobacco Use Status *Q: Never Tobacco User - Caffeine Use Caffeine Use: Reports: Soda - Alcohol Use Alcohol Use History: Yes Days Per Week of Alcohol Use Comment: not currently using alcohol, d/t - Recreational Drug Use Recreational Drug Use: No - Living Situation & Occupation Living situation: Reports: , Alone 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 ED EXAM - Physical Exam Exam: See Below Exam Limited By: No Limitations General Appearance: Alert, WD/WN, No Apparent Distress Cardiovascular: Normal Peripheral Pulses, Regular Rate, Rhythm, No Edema GI/Abdominal Exam: Normal Bowel Sounds, Soft, Non-Tender, No Distention, No Mass (Female) Exam: Other (not having bleeding; exam not indicated.) Heart Tones: Not Willacy Movement: Not Appreciated Extremities: Normal Inspection, Normal Capillary Refill Neurological: Alert, Oriented, Normal Cognition, No Motor/Sensory Deficits Psychiatric: Normal Affect, Normal Mood Skin Exam: Warm, Dry, Intact, Normal Color, No Rash Course - Vital Signs Last Recorded V/S: Last Vital Signs Temp 97.4 F 10/09/20 11:34 Pulse 62 10/09/20 11:34 Resp 18 10/09/20 11:34 BP 114/64 10/09/20 11:34 Pulse Ox 100 10/09/20 11:34 - Orders/Labs/Meds Orders: Active Orders 24 hr Category Date Time Status PATIENT RETYPE [BBK] Routine Lab 10/09/20 12:47 Ordered Labs: Laboratory Tests 10/09/20 10/09/20 10/09/20 Range/Units 12:03 12:03 12:03 WBC 8.17 (3.98-10.04) K/mm3 RBC 4.43 (3.98-5.22) M/mm3 Hgb 12.3 (11.2-15.7) gm/dl Hct 38.1 (34.1-44.9) % MCV 86.0 (79.4-94.8) fl MCH 27.8 (25.6-32.2) pg MCHC 32.3 (32.2-35.5) g/dl RDW Std Deviation 40.7 (36.4-46.3) fL Plt Count 290 (182-369) K/mm3 MPV 9.4 (9.4-12.3) fl Neut % (Auto) 67.0 (34.0-71.1) % Lymph % (Auto) 23.4 (19.3-51.7) % [place] % (Auto) 7.1 (4.7-12.5) % Eos % (Auto) 2.3 (0.7-5.8) Baso % (Auto) 0.1 (0.1-1.2) % Neut # (Auto) 5.47 (1.56-6.13) K/mm3 Lymph # (Auto) 1.91 (1.18-3.74) K/mm3 [place] # (Auto) 0.58 H (0.24-0.36) K/mm3 Eos # (Auto) 0.19 (0.04-0.36) K/mm3 Baso # (Auto) 0.01 (0.01-0.08) K/mm3 HCG, Quant 19611.0 mIU/mL Blood Type A POSITIVE - Re-Assessments/Exams Free Text/Narrative Re-Assessment/Exam: 10/09/20 12:05 Patient presents to the ED for evaluation of her vs constipation. Basic labs will be obtained as well as transvaginal US for evaluation of . 10/09/20 13:01 Patient's laboratory evaluation has completed, CBC is essentially unremarkable, hCG quantitative is 10,267, the patient blood type is a positive. Ultrasound has been performed but report is still pending at this time. Again likely the patient is suffering from possible constipation issues versus early implantation of the fetus on the uterine tissue. If ultrasound is okay, we will go ahead and recommend that the patient start on stool softeners to help relieve some of the constipation and follow-up with Dr. Araya at her next appointment. Departure - Departure Time of Disposition: 13:03 Disposition: Home, Self-Care 01 Condition: Good Clinical Impression: Abdominal cramping affecting Constipation Qualifiers: Constipation type: other constipation type Qualified Code(s): K59.09 - Other constipation - Discharge Information *PRESCRIPTION DRUG MONITORING PROGRAM REVIEWED*: No *COPY OF PRESCRIPTION DRUG MONITORING REPORT IN PATIENT PK: No Instructions: Abdominal Pain During , [id number], Constipation, Adult, [id number] Referrals: Mary Araya MD [Primary Care Provider] - Forms: ED Department Discharge Additional Instructions: You were evaluated in the ER today regarding your abdominal pain/vaginal bleeding in . You did have some labs drawn, and these were within normal limits, your hCG level was 10,267, your blood type is A+. Your ultrasound demonstrated an intrauterine of 5 weeks 5 days. No heartbeat was identified at this US, but this a normal variation for a of this gestation. Your ENGINE DESIGNER was consulted on your visit and she had no major concerns regarding your findings at this visit. Abdominal discomfort is thought likely to be due to your body getting ready to bear children and/or the fetus implanting on the uterine wall, Which is all normal. You also reported that you have been having issues with constipation, highly recommend you obtain a stool softener like Colace, Dulcolax, or MiraLAX and use in your regular routine daily, to help soften your stools to prevent further constipation. Please follow up with your ENGINE DESIGNER at your next scheduled appointment. Please return to the ED at any time if your symptoms change or worsen. Sepsis Event Note (ED) - Evaluation Sepsis Screening Result: No Definite Risk - Focused Exam Vital Signs: Vital Signs Temp Pulse Resp BP Pulse Ox 10/09/20 11:34 97.4 F 62 18 114/64 100 - My Orders Last 24 Hours: My Active Orders 10/09/20 12:47 PATIENT RETYPE [BBK] Routine - Assessment/Plan Last 24 Hours: My Active Orders 10/09/20 12:47 PATIENT RETYPE [BBK] Routine
--- NOTE | 2020-10-09 13:13 | US ---
First trimester obstetrical ultrasound: Multiple real-time images were obtained transvaginally. Comparison: No prior imaging for this Uterus is anteverted. Gestational sac is seen within the endometrial cavity. No yolk sac or pole is seen. Minimal fluid is seen within the cul-de-sac which is incidental. Small corpus luteum cyst is seen within the right ovary measuring 5 cm. Left ovary appears within normal limits. Measurements: Mean sac diameter: 10.3 mm - 5 weeks 5 days Impression: 1. Single intrauterine gestational sac. Sac size correlates to an EDC of 06/06/21. No yolk sac or pole is seen. Consider repeating imaging in 10-14 days to confirm viable . 2. Small corpus luteum cyst and minimal fluid within the cul-de-sac. Diagnostic code #2
== END 2020-10-09 13:33 | disposition home or self-care (01) ==
LOC: JD.ED 11:21
DX: O99.611 Diseases of the digestive system complicating pregnancy, first trimester (principal); K59.09 Other constipation; O99.211 Obesity complicating pregnancy, first trimester; E66.9 Obesity, unspecified; Z88.0 Allergy status to penicillin; Z3A.01 Less than 8 weeks gestation of pregnancy
CPT/HCPCS: 36415; 76817; 76817-26; 84702; 85025; 86900; 86901; 99283; 99284-25

== ENCOUNTER 2020-11-02 17:50 | Emergency (ER) | payer MEDICAID ==
[2020-11-02 18:09] VITALS: BP 138/59; PULSE 79
[2020-11-02] MEDS ORDERED: Sodium Chloride 0.9% 10 ML Syringe FLUSH PRN (18:32)
[2020-11-02] MEDS ORDERED: Acetaminophen 325 MG Tab PO ONE (18:34)
--- NOTE | 2020-11-02 19:02 | EDM.PDOC ---
ED HPI GENERAL MEDICAL PROBLEM - General Chief Complaint: PLANT DIRECTOR Problem Stated Complaint: 9 WKS PG/BLEEDING AND HEADACHE Time Seen by Provider: 11/02/20 18:12 Source of Information: Reports: Patient, RN Notes Reviewed History Limitations: Reports: No Limitations - History of Present Illness INITIAL COMMENTS - FREE TEXT/NARRATIVE: Patient is a 30-year-old female who presents to the ER for her and having vaginal bleeding. States she is roughly 9 to 10 weeks , and she developed some vaginal bleeding along with abdominal cramping today. Patient is to follow with Dr. Araya. She is also having a headache, and this is not characteristic for her, she is not sure if this is due to the or otherwise. Notes that she is only had enough bleeding to maybe soak a pantiliner. States that there were just a few bright red dots. No major clot- like material noted. She did not take anything for the headache or the abdominal pain. Patient was seen in this ER at the end of September, and was found to have an intrauterine that dated about 5 weeks 5 days. There was also an ovarian cyst noted as well. Patient denies any other sick-like symptoms, fever/chills, cough/shortness of breath, nausea/vomiting/diarrhea. Abdominal Pain Score (Numeric/FACES): 4 - Related Data Allergies Allergy/AdvReac Type Severity Reaction Status Date / Time amoxicillin Allergy Intermediate Rash Verified 11/02/20 18:09 Home Meds: Home Meds Mv-Mn/Iron/FA/Herbal/Digestive [ One Tablet] 1 tab PO DAILY 10/09/20 [History] Past Medical History HEENT History: Reports: Impaired Vision PLANT DIRECTOR History: Reports: Endocrine/Metabolic History: Reports: Obesity/BMI 30+ - Past Surgical History Female Surgical History: Reports: Breast Reduction Social & Family History - Family History Family Medical History: No Pertinent Family History - Tobacco Use Tobacco Use Status *Q: Never Tobacco User Second Hand Smoke Exposure: No - Caffeine Use Caffeine Use: Reports: Soda - Recreational Drug Use Recreational Drug Use: No - Living Situation & Occupation Living situation: Reports: , Alone 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 ED EXAM - Physical Exam Exam: See Below Exam Limited By: No Limitations General Appearance: Alert, WD/WN, No Apparent Distress Respiratory/Chest: No Respiratory Distress, Lungs Clear, Normal Breath Sounds, No Accessory Muscle Use, Chest Non-Tender Cardiovascular: Normal Peripheral Pulses, Regular Rate, Rhythm, No Edema GI/Abdominal Exam: Normal Bowel Sounds, Soft, Non-Tender, No Distention, No Mass Heart Tones: Not [place] Movement: Not Appreciated Extremities: Normal Inspection, Normal Capillary Refill Neurological: Alert, Oriented, Normal Cognition, No Motor/Sensory Deficits Psychiatric: Normal Affect, Normal Mood Skin Exam: Warm, Dry, Intact, Normal Color, No Rash Course - Vital Signs Last Recorded V/S: Last Vital Signs Temp 96.9 F 11/02/20 18:08 Pulse 79 11/02/20 18:08 Resp 18 11/02/20 18:08 BP 138/59 L 11/02/20 18:08 Pulse Ox 100 11/02/20 18:08 - Orders/Labs/Meds Orders: Active Orders 24 hr Category Date Time Status Peripheral IV Care [RC] . DIRECTED Care 11/02/20 18:33 Active OB Transvaginal [US] Stat Exams 11/02/20 18:32 Ordered Sodium Chloride 0.9% [Saline Flush] Med 11/02/20 18:32 Active 10 ml FLUSH ASDIRECTED PRN Peripheral IV Insertion Adult [OM.PC] Stat Oth 11/02/20 18:32 Ordered Medication Orders Sodium Chloride (Sodium Chloride 0.9% 10 Ml Syringe) 10 ml FLUSH ASDIRECTED PRN PRN Reason: Keep Vein Open Labs: Laboratory Tests 11/02/20 11/02/20 11/02/20 Range/Units 18:10 18:45 18:45 WBC 10.52 H (3.98-10.04) K/mm3 RBC 4.54 (3.98-5.22) M/mm3 Hgb 12.7 (11.2-15.7) gm/dl Hct 38.0 (34.1-44.9) % MCV 83.7 (79.4-94.8) fl MCH 28.0 (25.6-32.2) pg MCHC 33.4 (32.2-35.5) g/dl RDW Std Deviation 38.5 (36.4-46.3) fL Plt Count 306 (182-369) K/mm3 MPV 9.5 (9.4-12.3) fl Neut % (Auto) 70.5 (34.0-71.1) % Lymph % (Auto) 19.8 (19.3-51.7) % Phillips % (Auto) 7.3 (4.7-12.5) % Eos % (Auto) 2.2 (0.7-5.8) Baso % (Auto) 0.1 (0.1-1.2) % Neut # (Auto) 7.42 H (1.56-6.13) K/mm3 Lymph # (Auto) 2.08 (1.18-3.74) K/mm3 Phillips # (Auto) 0.77 H (0.24-0.36) K/mm3 Eos # (Auto) 0.23 (0.04-0.36) K/mm3 Baso # (Auto) 0.01 (0.01-0.08) K/mm3 Manual Slide Review Normal smear HCG, Quant 306649.0 mIU/mL Urine Color Yellow (Yellow) Urine Appearance Clear (Clear) Urine pH 7.0 (5.0-8.0) Ur Specific [place] > or = 1.030 (1.005-1.030) Urine Protein 1+ H (Negative) Urine Glucose (UA) Negative (Negative) Urine Ketones Negative (Negative) Urine Occult Blood Trace-intact H (Negative) Urine Nitrite Negative (Negative) Urine Bilirubin Negative (Negative) Urine Urobilinogen 1.0 (0.2-1.0) Ur Leukocyte Esterase Negative (Negative) Urine RBC 5-10 H (0-5) /hpf Urine WBC 0-5 (0-5) /hpf Ur Squamous Epith Cells 0-5 (0-5) /hpf Urine Bacteria Few (FEW) /hpf Urine Mucus Few (FEW) /hpf Blood Type Gel Antibody Screen 11/02/20 Range/Units 18:45 WBC (3.98-10.04) K/mm3 RBC (3.98-5.22) M/mm3 Hgb (11.2-15.7) gm/dl Hct (34.1-44.9) % MCV (79.4-94.8) fl MCH (25.6-32.2) pg MCHC (32.2-35.5) g/dl RDW Std Deviation (36.4-46.3) fL Plt Count (182-369) K/mm3 MPV (9.4-12.3) fl Neut % (Auto) (34.0-71.1) % Lymph % (Auto) (19.3-51.7) % Phillips % (Auto) (4.7-12.5) % Eos % (Auto) (0.7-5.8) Baso % (Auto) (0.1-1.2) % Neut # (Auto) (1.56-6.13) K/mm3 Lymph # (Auto) (1.18-3.74) K/mm3 Phillips # (Auto) (0.24-0.36) K/mm3 Eos # (Auto) (0.04-0.36) K/mm3 Baso # (Auto) (0.01-0.08) K/mm3 Manual Slide Review HCG, Quant mIU/mL Urine Color (Yellow) Urine Appearance (Clear) Urine pH (5.0-8.0) Ur Specific [place] (1.005-1.030) Urine Protein (Negative) Urine Glucose (UA) (Negative) Urine Ketones (Negative) Urine Occult Blood (Negative) Urine Nitrite (Negative) Urine Bilirubin (Negative) Urine Urobilinogen (0.2-1.0) Ur Leukocyte Esterase (Negative) Urine RBC (0-5) /hpf Urine WBC (0-5) /hpf Ur Squamous Epith Cells (0-5) /hpf Urine Bacteria (FEW) /hpf Urine Mucus (FEW) /hpf Blood Type A POSITIVE Gel Antibody Screen Negative Meds: Medications Generic Name Dose Route Start Last Admin Trade Name Freq PRN Reason Stop Dose Admin Sodium Chloride 10 ml 11/02/20 18:32 Sodium Chloride 0.9% 10 Ml Syringe FLUSH ASDIRECTED PRN Keep Vein Open Discontinued Medications Generic Name Dose Route Start Last Admin Trade Name Freq PRN Reason Stop Dose Admin Acetaminophen 975 mg 11/02/20 18:34 11/02/20 18:42 Acetaminophen 325 Mg Tab PO 11/02/20 18:35 975 mg NOW ONE Administration - Re-Assessments/Exams Free Text/Narrative Re-Assessment/Exam: 11/02/20 19:05 Patient presents to the ER for her vaginal bleeding and , we will get some basic labs and repeat ultrasound for evaluation. 11/02/20 20:16 Lab evaluation ultrasound have been completed, patient's CBC is unremarkable, hemoglobin is within normal limits, the patient's hCG quantitative level is 135,489, urinalysis was not demonstrative of any sign of infection. Ultrasound did see an intrauterine gestational sac and yolk sac with a small pole the gestational age according to gestational sac measures approximately 9 weeks gestation with a pole measures 6 weeks 2 days, no cardiac activity is identified. There is some concern for failed there is a very small percent of pregnancies were heart rates were not seen until approximately 8 weeks. Repeat ultrasound exam in 10 days could be diagnostic. There again is a corpus luteum cyst in the right ovary which is incidentally noted. I did go over these findings with Dr. Araya, PLANT DIRECTOR on-call, and she does think that this is likely a possible nonviable however we will go ahead and give her conservative precautions and strict return precautions for vaginal bleeding at this time versus any sort of interventions, and have her follow-up with Dr. Araya in the clinic for repeat ultrasound, and further evaluation. Departure - Departure Time of Disposition: 20:18 Disposition: Home, Self-Care 01 Condition: Good Clinical Impression: Vaginal bleeding in - Discharge Information *PRESCRIPTION DRUG MONITORING PROGRAM REVIEWED*: No *COPY OF PRESCRIPTION DRUG MONITORING REPORT IN PATIENT PK: No Instructions: Threatened Miscarriage, [id number] Referrals: PCP,None [Primary Care Provider] - Forms: ED Department Discharge Additional Instructions: You were evaluated in the ER today regarding your abdominal pain/vaginal bleeding in . You did have some labs drawn, and these were within normal limits, your hCG level was 135,489, your blood type is A+. Your ultrasound demonstrated a gestational sac of 9 weeks however the pole measures only roughly 6 weeks 2 days, and a heart rate was not readily identified at today's visit. This is concerning for possible nonviable however there is a very small percentage of pregnancies, where the heart rate lags behind a little bit. Findings were reviewed with PLANT DIRECTOR, Dr. Araya, and she is also concerned for possible nonviable at this time. However at this point in time this is kind of a watch and wait situation, if you should start bleeding more heavily per your vagina, it is likely that the will terminate itself. Recommend that you do not lift anything heavier than a gallon of milk (5 lbs), do not engage in sexual activities, try to get as much pelvic rest as possible for the next few days. Please try not to exert yourself, rest and relax, and take it easy. If you are bleeding through more than 1-2 maxi pads every couple hours, this would be cause for concern to return to the ER for immediate management. It is normal to bleed through 1 maxi pad, every 3 or 4 hours. If you start getting any sort of dizziness, lightheadedness, or feelings of being faint, you should come back to the ER for further evaluation management. Highly recommend you call Dr. Araya's office on Wednesday, to schedule an appointment with her for close follow up, [facility] number [phone]. Please return to the ED at any time if your symptoms change or worsen. Sepsis Event Note (ED) - Evaluation Sepsis Screening Result: No Definite Risk - Focused Exam Vital Signs: Vital Signs Temp Pulse Resp BP Pulse Ox 11/02/20 18:08 96.9 F 79 18 138/59 L 100 - My Orders Last 24 Hours: My Active Orders 11/02/20 18:32 OB Transvaginal [US] Stat Sodium Chloride 0.9% [Saline Flush] 10 ml FLUSH ASDIRECTED PRN Peripheral IV Insertion Adult [OM.PC] Stat 11/02/20 18:33 Peripheral IV Care [RC] . DIRECTED - Assessment/Plan Last 24 Hours: My Active Orders 11/02/20 18:32 OB Transvaginal [US] Stat Sodium Chloride 0.9% [Saline Flush] 10 ml FLUSH ASDIRECTED PRN Peripheral IV Insertion Adult [OM.PC] Stat 11/02/20 18:33 Peripheral IV Care [RC] . DIRECTED
--- NOTE | 2020-11-03 10:03 | US ---
First trimester obstetrical ultrasound: Multiple real-time images were obtained transvaginally. Comparison: Previous first trimester obstetrical ultrasound of 10/09/20. Dates: Gestational sac: Gestational age 9 weeks 0 days [place]-rump length: Gestational age 6 weeks 2 days Single intrauterine gestational sac is seen. Small pole is seen. No evidence of cardiac activity is seen at this time. Slight debris is seen within the gestational sac. Small corpus luteum cyst is noted within the maternal right ovary measuring 2.6 cm. Maternal left ovary is not visualized. Impression: 1. Increased gestational sac size with a small pole showing no heart activity. Findings most likely represent nonviable , although if patient does not miscarry repeat study is recommended in 10 days to make sure normal does not develop. 2. Other findings believed to be incidental as noted above. Diagnostic code #3 I agree with preliminary report from [facility] finalized on 11/02/20, 8:55 PM CDT, code 1
== END 2020-11-02 20:45 | disposition home or self-care (01) ==
LOC: JD.ED 17:50
DX: O20.9 Hemorrhage in early pregnancy, unspecified (principal); O99.211 Obesity complicating pregnancy, first trimester; Z3A.09 9 weeks gestation of pregnancy; Z88.0 Allergy status to penicillin
CPT/HCPCS: 36415; 76817; 81001; 84702; 85025; 86850; 86900; 86901; 99284; A9270; 99283

== ENCOUNTER 2020-12-20 13:26 | Emergency (ER) | payer MEDICAID ==
[2020-12-20 14:02] VITALS: BP 121/79; PULSE 115
--- NOTE | 2020-12-20 14:50 | EDM.PDOC ---
ED HPI GENERAL MEDICAL PROBLEM - General Chief Complaint: Respiratory Problem Stated Complaint: COVID SX Time Seen by Provider: 12/20/20 13:43 Source of Information: Reports: Patient, RN Notes Reviewed History Limitations: Reports: No Limitations - History of Present Illness INITIAL COMMENTS - FREE TEXT/NARRATIVE: Patient is a 30-year-old female presenting to the emergency department for complaints of nasal congestion with concerns that she could possibly have Covid. She also reports intermittent headaches as well as being tired for the last week. She has not been vaccinated. Denies any fever, chills, nausea, vomiting, diarrhea, cough, chest pain or shortness of breath. Headache Pain Score (Numeric/FACES): 3 - Related Data Allergies Allergy/AdvReac Type Severity Reaction Status Date / Time amoxicillin Allergy Intermediate Rash Verified 12/20/20 14:02 Home Meds: Home Meds . [No Known Home Meds] 12/20/20 [History] Past Medical History - Past Health History Medical/Surgical History: Denies Medical/Surgical History HEENT History: Reports: Impaired Vision Cardiovascular History: Reports: None Respiratory History: Reports: None Gastrointestinal History: Reports: None Genitourinary History: Reports: None OUTCOMES MANAGER History: Reports: , Spontaneous Musculoskeletal History: Reports: None Neurological History: Reports: None Psychiatric History: Reports: None Endocrine/Metabolic History: Reports: Obesity/BMI 30+ Hematologic History: Reports: None Immunologic History: Reports: None Oncologic (Cancer) History: Reports: None Dermatologic History: Reports: None - Infectious Disease History Infectious Disease History: Reports: None - Past Surgical History Head Surgeries/Procedures: Reports: None Female Surgical History: Reports: Breast Reduction, D&C Social & Family History - Family History Family Medical History: No Pertinent Family History - Tobacco Use Tobacco Use Status *Q: Never Tobacco User - Caffeine Use Caffeine Use: Reports: None - Recreational Drug Use Recreational Drug Use: No - Living Situation & Occupation Living situation: Reports: , Alone 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 ED EXAM, GENERAL - Physical Exam Exam: See Below General Appearance: Alert, WD/WN, No Apparent Distress Respiratory/Chest: No Respiratory Distress, Lungs Clear, Normal Breath Sounds, No Accessory Muscle Use, Chest Non-Tender Cardiovascular: Normal Peripheral Pulses, Regular Rate, Rhythm, No Edema, No Gallop, No JVD, No Murmur, No Rub GI/Abdominal: Normal Bowel Sounds, Soft, Non-Tender, No Organomegaly, No Distention, No Abnormal Bruit, No Mass Neurological: Alert, Oriented, CN II-XII Intact, Normal Cognition, Normal Gait, Normal Reflexes, No Motor/Sensory Deficits Psychiatric: Normal Affect, Normal Mood Skin Exam: Warm, Dry, Intact, Normal Color, No Rash Course - Vital Signs Last Recorded V/S: Last Vital Signs Temp 97.1 F 12/20/20 13:59 Pulse 115 H 12/20/20 13:59 Resp 16 12/20/20 13:59 BP 121/79 12/20/20 13:59 Pulse Ox 100 12/20/20 13:59 - Orders/Labs/Meds Labs: Laboratory Tests 12/20/20 Range/Units 14:05 SARS-CoV-2 RNA ([facility]) Negative (NEGATIVE) - Re-Assessments/Exams Free Text/Narrative Re-Assessment/Exam: Patient is a 30-year-old female presenting to the emergency department with request of having Covid test completed. She has had mild headache, nasal congestion, and fatigue for the last week. Exam is unremarkable. I have ordered a Covid test. 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 We will call her with her Covid results when they are available. Recommend isolation until she receives her results. 12/20/20 15:08 Attempted to contact patient to notify of negative Covid results. There was no answer. Voicemail was left requesting return call. Departure - Departure Time of Disposition: 14:48 Disposition: Home, Self-Care 01 Condition: Good Clinical Impression: Viral illness - Discharge Information *PRESCRIPTION DRUG MONITORING PROGRAM REVIEWED*: No Instructions: COVID-19 Frequently Asked Questions, Sinusitis, Adult, [id number] Referrals: PCP,None [Primary Care Provider] - Forms: ED Department Discharge, ED Return to Work/School Form Additional Instructions: You were seen in the emergency department today for nasal congestion with concerns of possible Covid. Covid testing was completed. Results are not available thus far, but you will be notified when the results are back. Recommend isolating until Covid results are available. Follow-up in the clinic or return to ER as needed for any new or worsening symptoms. Sepsis Event Note (ED) - Evaluation Sepsis Screening Result: No Definite Risk - Focused Exam Vital Signs: Vital Signs Temp Pulse Resp BP Pulse Ox 12/20/20 13:59 97.1 F 115 H 16 121/79 100
== END 2020-12-20 14:57 | disposition home or self-care (01) ==
LOC: JD.ED 13:26
DX: B34.9 Viral infection, unspecified (principal); E66.9 Obesity, unspecified; Z68.34 Body mass index [BMI] 34.0-34.9, adult; Z88.0 Allergy status to penicillin; Z20.822 Contact with and (suspected) exposure to COVID-19
CPT/HCPCS: 99282; 99283; U0002

== ENCOUNTER 2022-01-29 15:05 | Emergency (ER) | payer MEDICAID ==
[2022-01-29] MEDS ORDERED: Acetaminophen/HYDROcodone 325-5 MG Tab PO ONE (15:35)
[2022-01-29 17:18] VITALS: BP 136/78; PULSE 86
== END 2022-01-29 17:07 | disposition home or self-care (01) ==
LOC: JD.ED 15:05
DX: S42.252A Displaced fracture of greater tuberosity of left humerus, initial encounter for closed fracture (principal); E66.9 Obesity, unspecified; Z68.29 Body mass index [BMI] 29.0-29.9, adult; Z88.0 Allergy status to penicillin; W10.9XXA Fall (on) (from) unspecified stairs and steps, initial encounter
CPT/HCPCS: 73030; 99283; A9270

== ENCOUNTER 2023-12-11 16:46 | Emergency (ER) | payer SELFPAY ==
[2023-12-11 17:40] VITALS: BP 137/89; PULSE 91
[2023-12-11 18:03] LABS: APPEARANCE,URINE CLEAR (Clear); BILIRUBIN,URINE 1+ (Negative); COLOR,URINE YELLOW (Yellow); GLUCOSE,URINE NEGATIVE (Negative); KETONES,URINE TRACE (Negative); LEUKOCYTE ESTERASE,URINE NEGATIVE (Negative); NITRITE,URINE NEGATIVE (Negative); OCCULT BLOOD,URINE NEGATIVE (Negative); PH,URINE 5.5 (5.0-8.0); PROTEIN,URINE 2+ (Negative); UROBILINOGEN,URINE 0.2 (0.2-1.0)
[2023-12-11 18:08] LABS: BASOPHILS ABSOLUTE AUTO 0.1 K/mm3 (0.0-0.2); BASOPHILS PERCENT AUTO 0.4 % (0.0-1.0); EOSINOPHILS ABSOLUTE AUTO 0.3 K/mm3 (0.0-0.4); EOSINOPHILS PERCENT AUTO 2.1 % (0.0-6.0); HEMATOCRIT 39.3 % (37.0-47.0); HEMOGLOBIN 12.7 gm/dl (12.0-16.0); IMMATURE GRAN ABSOLUTE AUTO 0.03 K/mm3 (0.00-0.05); IMMATURE GRAN PERCENT AUTO 0.3 % (0.0-0.4); LYMPHOCYTES ABSOLUTE AUTO 2.9 K/mm3 (1.0-4.8); LYMPHOCYTES PERCENT AUTO 24.3 % (24.0-44.0); MEAN CORPUSCULAR HEMOGLOBIN 27.6 pg (28.0-32.0); MEAN CORPUSCULAR HGB CONC 32.3 g/dl (32.0-36.0); MEAN CORPUSCULAR VOLUME 85.4 fl (83.0-99.0); MEAN PLATELET VOLUME 8.9 fl (9.4-12.3); MONOCYTES ABSOLUTE AUTO 0.8 K/mm3 (0.0-0.8); MONOCYTES PERCENT AUTO 6.4 % (0.0-8.0); NEUTROPHILS ABSOLUTE AUTO 7.8 K/mm3 (1.8-7.7); NEUTROPHILS PERCENT AUTO 66.5 % (41.0-71.0); PLATELET COUNT,PLT 304 K/mm3 (150-400); WHITE BLOOD CELL COUNT,WBC 11.79 K/mm3 (3.9-11.3)
[2023-12-11 18:10] LABS: BACTERIA,URINE FEW /hpf (FEW); MUCUS,URINE FEW /hpf (FEW); RBC,URINE 0-5 /hpf (0-5); SQUAMOUS EPITHELIAL CELLS,UR 0-5 /hpf (0-5); WBC,URINE 0-5 /hpf (0-5)
[2023-12-11 18:30] LABS: A/G RATIO 0.8 (1-2); ALBUMIN 3.6 g/dl (3.4-5.0); ANION GAP 13.6 (5-15); BUN/CREATININE RATIO 8.9 (14-18); CALCIUM 8.7 mg/dL (8.5-10.1); CREATININE 0.9 mg/dL (0.55-1.02); EST CRCL DRUG DOSING (CG) 84.79 mL/min; POTASSIUM,K 3.6 mEq/L (3.5-5.1); PROTEIN TOTAL,TP 8.2 g/dl (6.4-8.2)
[2023-12-11] MEDS: Iopamidol 612 MG/ML 100 ML Bottle IVPUSH ONE (18:50)
== END 2023-12-11 19:54 | disposition left against medical advice (07) ==
LOC: JD.ED 16:46
DX: M26.601 Right temporomandibular joint disorder, unspecified (principal); E66.9 Obesity, unspecified; Z88.0 Allergy status to penicillin; Z88.8 Allergy status to other drugs, medicaments and biological substances; Z91.040 Latex allergy status; Y04.2XXA Assault by strike against or bumped into by another person, initial encounter
CPT/HCPCS: 36415; 70450; 70486; 71260; 72128; 72131; 74177; 80053; 81001; 81025; 85025; 99284; Q9967